=== PATIENT | female | born 1960 | race Caucasian/White ===

== ENCOUNTER 2022-09-21 09:19 | Emergency (ER) | payer BC, SELFPAY ==
--- NOTE | 2022-09-21 09:29 | ED.URI ---
HPI - URI/Sore Throat General Chief Complaint: Upper Respiratory Infection Stated Complaint: Sinus/Left Ear Irritation Source: patient and RN notes reviewed History of Present Illness HPI Narrative: 62-year-old female presents to urgent care with complaints of left ear pain, sore throat, congestion, and headache. Patient states her symptoms have been going on for at least week if not more. Patient states last couple days she has felt very drained. Patient has also developed a cough that is worse at nighttime. He denies any fevers, chills, vomiting, chest pain, shortness of breath. Some parts of this dictation were generated by voice recognition software and may contain typographical and/or grammatical inaccuracies. Related Data Home Medications Medication Instructions Recorded Confirmed metoprolol succinate 50 mg 50 mg PO DAILY 09/21/22 09/21/22 tablet,extended release 24 hr pantoprazole 40 mg tablet,delayed 40 mg PO DAILY 09/21/22 09/21/22 release sertraline 25 mg tablet 25 mg PO DAILY 09/21/22 09/21/22 spironolactone 25 mg tablet 25 mg PO DAILY 09/21/22 09/21/22 Allergies Allergy/AdvReac Type Severity Reaction Status Date / Time latex Allergy Unknown Other Verified 09/21/22 09:36 Sulfa (Sulfonamide Allergy Unknown Other Verified 09/21/22 09:36 Antibiotics) Review of Systems Review of Systems: Pertinent positives and pertinent negatives per HPI. [facility] Family History Family History (Updated 03/30/18 @ 10:38 by DOCTOR UNKNOWN) Sibling Acute myocardial infarction Other Family history of allergic disorder Family history of arthritis Family history of cardiovascular disease Family history of malignant neoplasm Hypertension Social History Social History Smoking status: Current every day smoker Alcohol intake: current Comments At the time of my signature, I reviewed and agree with the nursing past medical, surgical, social, and family history. There is no relevant family history pertinent to the patient complaint. Exam Narrative: GENERAL: This is a well-nourished, well-developed patient, in no apparent distress. HEAD: normocephalic, atraumatic. EYES: Sclera clear/white. Vision is grossly intact. Bilateral, periorbital swelling noted, specifically inferior orbits. EARS: External ears normal, auditory canals clear and without drainage, TMs normal without perforation. Hearing grossly intact. NOSE: External nose normal with no obvious nasal discharge, congestion. THROAT: Mucous membranes moist, posterior pharynx clear. NECK: Neck supple, non-tender without lymphadenopathy, masses or thyromegaly. CARDIOVASCULAR: Regular rate and rhythm without murmurs, gallops, or rubs. RESPIRATORY: Clear to auscultation. Breath sounds equal bilaterally. No wheezes, rales, or rhonchi. SKIN: warm, intact with no suspicious lesions or rash, good texture and turgor. NEURO: awake, alert, and oriented to person, place and time. There were no obvious focal neurologic abnormalities. Course Course Level of Care: Express Care Visit Vital Signs Vital signs: Vital Signs Temperature 98.1 F 09/21/22 09:43 Pulse Rate 73 09/21/22 09:43 Respiratory Rate 16 09/21/22 09:43 Blood Pressure 137/73 09/21/22 09:43 Pulse Oximetry 100 09/21/22 09:43 Oxygen Delivery Room Air 09/21/22 09:43 Temperature 98.1 F 09/21/22 09:43 Pulse Rate 73 09/21/22 09:43 Respiratory Rate 16 09/21/22 09:43 Blood Pressure 137/73 09/21/22 09:43 Pulse Oximetry 100 09/21/22 09:43 Oxygen Delivery Room Air 09/21/22 09:43 reviewed MDM - URI/Sore Throat MDM Narrative Medical decision making narrative: Go to the ER for any new or worsening symptoms. Avoid smoking/second-hand smoke. Continue to take Tylenol or Motrin for pain. Increase your Vitamin C intake. Use a humidifier or vaporizer at night. Take Medications as prescribed. Drink plenty of water. 8-10 glasses per day. Use
[2022-09-21 09:43] VITALS: BP 137/73; PULSE 73; RESP 16; TEMP 36.7; O2SAT 100
[2022-09-21] MEDS: predniSONE 20 MG TABLET 60 MG PO (10:24)
== END 2022-09-21 10:22 | disposition home or self-care (01) ==
PROVIDERS: Emergency Provider Nurse Practitioner Family; PCP Internal Medicine
DX: J40 Bronchitis, not specified as acute or chronic (principal); J32.0 Chronic maxillary sinusitis; Z20.822 Contact with and (suspected) exposure to COVID-19; F17.200 Nicotine dependence, unspecified, uncomplicated
CPT/HCPCS: 87081; 87426; 87804; 87880; 99213; C9803; G0463; J7512